=== PATIENT | female | born 1930 | race Caucasian/White ===

== ENCOUNTER 2016-07-10 05:12 | Emergency (ER) | payer OTHER ==
[~2016-07-10] VITALS: Ht 157.5 cm; Wt 52.2 kg
[~2016-07-10 05:12] MED LIST: ASPIRIN81 M4 PO; ATIVAN0.5 M1 PO; ATORVASTATIN CA10 M1 PO; COLCRYS0.6 M1 PO; DOXYCYCLINE HY100 M2 PO; FUROSEMIDE20 M1 PO; IBUPROFEN400 M1 PO; IBUPROFEN600 M1 PO; METOPROLOL TAR100 M1 PO; OMEPRAZOLE20 M2 PO; PREDNISONE20 M1 PO; TOPROL XL50 M1 PO; TRANDOLAPRIL4 M1 PO
--- NOTE | 2016-07-10 05:29 | ED NECK/BACK PAIN COMPLAINT ---
History of Present Illness General Chief Complaint: Upper Extremity Problem Stated Complaint: "PER PT PAIN IN MY BACK Source: patient Exam Limitations: no limitations Vital Signs & Intake/Output Vital Signs & Intake/Output Vital Signs Date Time Temp Pulse Resp B/P Pulse O2 O2 Flow FiO2 Ox Delivery Rate 07/10 0539 99.5 97 18 140/72 95 Room Air Allergies Coded Allergies: No Known Allergies (04/03/16) Reconcile Medications Aspirin (Aspirin*) 81 MG TAB.CHEW 1 TAB PO DAILY HEART HEALTH (Reported) Atorvastatin Calcium 10 MG TABLET 1 TAB PO HIGH CHOLESTROL (Reported) Colchicine (Colcrys) 0.6 MG TABLET 1 TAB PO BID PERICARDITIS Furosemide 20 MG TABLET 20 MG PO DAILY heart Lorazepam (Ativan) 0.5 MG TABLET 1 TAB PO DAILY NEEDED PRN anxiety Metoprolol Tartrate 100 MG TABLET 1 TAB PO DAILY HEART/BP (Reported) Omeprazole 20 MG CAPSULE.DR 40 MG PO DAILY AC GI PPX . Prednisone 20 MG TABLET 1 TAB PO BID pericarditis Trandolapril 4 MG TABLET 1 TAB PO DAILY HIGH BLOOD PRESSURE (Reported) Triage Nurses Notes Reviewed? 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 SISTER (DM). Review of Systems Review of Systems Constitutional: Reports: no symptoms. Eyes: Reports: no symptoms. Ears, Nose, Throat, Mouth: Reports: no symptoms. Respiratory: Reports: no symptoms. Cardiovascular: Reports: no symptoms. Gastrointestinal/Abdominal: Reports: no symptoms. Musculoskeletal: Reports: no symptoms. Skin: Reports: no symptoms. Neurological/Psychological: Reports: no symptoms. All Other Systems: Reviewed and Negative Physical Exam Physical Exam General Appearance: well developed/nourished, mild distress Head: atraumatic Eyes: Bilateral: PERRL, EOMI. Ears, Nose, Throat, Mouth: hearing grossly normal Respiratory: normal breath sounds Cardiovascular: regular rate/rhythm Gastrointestinal: soft, non-tender Back: normal inspection Extremities: normal range of motion Neurologic/Psych: awake, alert, oriented x 3, normal mood/affect Skin: intact, normal color, warm/dry Progress Plan of Care: Orders Procedure Date/time Status B-TYPE NATRIURETIC PEP (BNP) 07/10 0550 Active XRY-PORTABLE CHEST XRAY 07/10 0549 Active TROPONIN LEVEL 07/10 0549 Active PARTIAL THROMBOPLASTIN TIME 07/10 0549 Active PROTHROMBIN TIME 07/10 0549 Active WESTERGREN SED RATE 07/10 0549 Active D-DIMER 07/10 0549 Active COMPREHENSIVE METABOLIC PANEL 07/10 0549 Active CBC WITHOUT DIFFERENTIAL 07/10 0449 Active ECHOCARDIOGRAM 07/10 0549 Active Departure Departure Disposition: HOME OR SELF CARE Condition: Stable Clinical Impression Primary Impression: Back pain Referrals: WILLARD GOODWIN MD (PCP/Family) Departure Forms: Customer Survey General Discharge Information
--- NOTE | 2016-07-10 05:55 | ED CARDIAC/CP/PALPITATIONS ---
See Addendum History of Present Illness General Chief Complaint: Upper Extremity Problem Stated Complaint: "PER PT PAIN IN MY BACK Source: patient Exam Limitations: no limitations Vital Signs & Intake/Output Vital Signs & Intake/Output Vital Signs Date Time Temp Pulse Resp B/P Pulse O2 O2 Flow FiO2 Ox Delivery Rate 07/10 0539 99.5 97 18 140/72 95 Room Air Allergies Coded Allergies: No Known Allergies (04/03/16) Reconcile Medications Aspirin (Aspirin*) 81 MG TAB.CHEW 1 TAB PO DAILY HEART HEALTH (Reported) Atorvastatin Calcium 10 MG TABLET 1 TAB PO HIGH CHOLESTROL (Reported) Colchicine (Colcrys) 0.6 MG TABLET 1 TAB PO BID PERICARDITIS Furosemide 20 MG TABLET 20 MG PO DAILY heart Lorazepam (Ativan) 0.5 MG TABLET 1 TAB PO DAILY NEEDED PRN anxiety Metoprolol Tartrate 100 MG TABLET 1 TAB PO DAILY HEART/BP (Reported) Omeprazole 20 MG CAPSULE.DR 40 MG PO DAILY AC GI PPX . Prednisone 20 MG TABLET 1 TAB PO BID pericarditis Trandolapril 4 MG TABLET 1 TAB PO DAILY HIGH BLOOD PRESSURE (Reported) Triage Note: PT TO TRIAGE C/O BACK/SHOULDER PAIN. PT STATES SHE HAD A PACEMAKER PLACED, SHE RECENTLY WAS CHANGED FROM 10MG PREDNISONE TO 5MG FOR INFLAMMATION OF THE HEART. PT STATES SHE IS WORRIED THAT THE PAIN THAT STARTED LAST NIGHT COULD BE RELATED TO THE HEART INFLAMMATION. Triage Nurses Notes Reviewed? yes Onset: Gradual Duration: hour(s): Timing: recent history Quality/Severity: mild, moderate Location: RIGHT SHOULDER Radiation: no radiation Activities at Onset: none Prior Chest Pain/Card Workup: LYME CARDITIS W/ EFFUSION Modifying Factors: Improves With: rest. 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 She states that for the past 1-2 days she's had intermittent right shoulder pain. She states, "I couldn't sleep at all tonight." She notes that the pain is not reproducible, or affected by movement. It is not associated with dizziness, lightheadedness, chest pressure, or palpitations. She has no problems breathing. She states, "the last time I had this pain I had a real problem with my heart." She notes that she is due for an ultrasound of her heart due to a prior moderate pericardial effusion. Upon arrival to the emergency department, she has no shoulder pain chest pain or shortness of breath. She is otherwise well. (GILBERTO IRBY,GENOVEVA Berkowitz) Past History Travel History Traveled to [place] past 21 day No Medical History Any Pertinent Medical History? 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 SISTER (DM). Hx Contributory? No (GENOVEVA FIGUEROA MD) Review of Systems Review of Systems Constitutional: Reports: no symptoms. EENTM: Reports: no symptoms. Respiratory: Reports: no symptoms. Cardiovascular: Reports: no symptoms. GI: Reports: no symptoms. Genitourinary: Reports: no symptoms. Musculoskeletal: Reports: no symptoms. Skin: Reports: no symptoms. Neurological/Psychological: Reports: no symptoms. Hematologic/Endocrine: Reports: no symptoms. Immunologic/Allergic: Reports: no symptoms. All Other Systems: Reviewed and Negative (GENOVEVA FIGUEROA MD) Physical Exam Physical Exam General Appearance: well developed/nourished, no apparent distress Head: atraumatic, normal appearance Eyes: Bilateral: normal appearance. Ears, Nose, Throat: normal pharynx, normal ENT inspection, hearing grossly normal Neck: normal inspection, supple, full range of motion Respiratory: normal breath sounds, chest non-tender, no respiratory distress, quiet respiration, lungs clear Cardiovascular: regular rate/rhythm Gastrointestinal: normal bowel sounds, soft, non-tender, no organomegaly Back: normal inspection, normal range of motion Extremities: normal inspection, normal capillary refill, normal range of motion, no edema Neurologic/Psych: no motor/sensory deficits, awake, alert, oriented x 3 Skin: intact, normal color, warm/dry Core Measures ACS in differential dx? No Severe Sepsis Present: No Septic Shock Present: No (GILBERTO IRBY,GENOVEVA Berkowitz) Progress Differential Diagnosis: AMI, pericarditis, PERICARDIAL EFFUSION VERSUS MUSCULOSKELETAL PAIN VERSUS OTHER Plan of Care: Orders Procedure Date/time Status Heart Healthy Diet 07/10 L Active TROPONIN LEVEL 07/10 899 Active EKG 07/10 899 Active EKG 07/10 628 Active Add-on Test (ER Only) 07/10 626 Active B-TYPE NATRIURETIC PEP (BNP) 07/10 599 Complete TROPONIN LEVEL 07/10 548 Complete PARTIAL THROMBOPLASTIN TIME 07/10 548 Complete PROTHROMBIN TIME 07/10 548 Complete WESTERGREN SED RATE 07/10 548 Complete D-DIMER 07/10 548 Complete COMPREHENSIVE METABOLIC PANEL 07/10 548 Complete CBC WITHOUT DIFFERENTIAL 07/10 548 Complete ECHOCARDIOGRAM 07/10 548 Active Laboratory Tests 07/10/16 0600: Anion Gap 8, Estimated GFR 59 L, BUN/Creatinine Ratio 24.4, Glucose 105 H, Calcium 9.6, Total Bilirubin 1.2, AST 19, ALT 31, Alkaline Phosphatase 57, Troponin I 0.02, Omu-Z-Jcyoqdkddsl Pept 1140 H, Total Protein 6.7, Albumin 3.9, Globulin 2.8, Albumin/Globulin Ratio 1.4, PT 10.5, INR 1.00, APTT 28, D-Dimer 917 H, CBC w Diff NO MAN DIFF REQ, RBC 4.32, MCV 87.6, MCH 28.9, RDW 17.0 H, MPV 7.9, Gran % 76.5 H, Lymphocytes % 17.1 L, Monocytes % 5.5, Eosinophils % 0.8, Basophils % 0.1, Absolute Granulocytes 9.5 H, Absolute Lymphocytes 2.1, Absolute Monocytes 0.7 H, Absolute Eosinophils 0.1, Absolute Basophils 0, PUBS MCHC 33.0, ESR Westergren 55 H 07/10/16 0550: Ljn-D-Ikarurfszpe Pept Cancelled Diagnostic Imaging: Viewed by Me: Radiology Read. Discussed w/RAD: Radiology Read. CXR Impression: no acute abnormality, no infiltrates, normal size heart, normal mediastinum Initial ED EKG: PACED, NO CHANGE FROM PRIOR Hand-Off Endorsed To: DEAN DO,CLAUDIA L. Endorsed Time: 0700 Pending: consult, labs, ultrasound Comments: PATIENT: JAQUI CR PRESENT AGE: 86 PATIENT ACCOUNT NO: [id number] : 29 LOCATION: [facility] ORDERING PHYSICIAN: GENOVEVA FIGUEROA MD SERVICE DATE: 07/10/16 EXAM TYPE: RAD - XRY-PORTABLE CHEST XRAY EXAMINATION: XR PORTABLE CHEST CLINICAL INFORMATION: Chest pain. COMPARISON: 04/21/2016 TECHNIQUE: Portable AP view of the chest was obtained. FINDINGS: There is a right chest wall dual-lead pacer which is unchanged. The lungs are well expanded. Mild elevation of the right hemidiaphragm is unchanged. No consolidation, edema, or effusion. No pneumothorax. The cardiomediastinal silhouette is unchanged, with a calcified aorta. No acute osseous abnormality. IMPRESSION: No acute pulmonary findings. DICTATED BY: ELMER FIGUEROA MD DATE/TIME DICTATED:07/10/16617 PRIMARY HEALTH ORGANISATION MANAGER:TIM DATE/TIME TRANSCRIBED:07/10/16617 CONFIDENTIAL, DO NOT COPY WITHOUT APPROPRIATE AUTHORIZATION. <Electronically signed in Other Vendor System> SIGNED BY: ELMER FIGUEROA MD 07/10 0624 (GILBERTO IRBY,GENOVEVA Berkowitz) Departure Departure Disposition: HOME OR SELF CARE Condition: Stable Clinical Impression Primary Impression: Right shoulder pain Referrals: WILLARD GOODWIN MD (PCP/Family) Departure Forms: Customer Survey General Discharge Information Comments 07/10/16, 6:55AM... Pt pain free in ED, awaiting labs... pt signed out to dr. cavazos. (GILBERTO IRBY,GENOVEVA Berkowitz) Departure Comments 07/10/16 8:35 AM The patient was signed out to me by Dr. Figueroa at 7 AM. She is 86-year-old female with a history of heart block. She status post pacemaker insertion. She also has a history of Lyme disease. She says last night she had an episode of right arm pain and back pain that was consistent with the same feelings that she had when she had her prior bradycardic episode Now in the emergency department she is asymptomatic no chest pain or shortness of breath Labs are unremarkable although she had an elevated d-dimer CTA was negative for pulmonary embolism Troponin is negative EKG reveals ventricular paced beats She is pending repeat EKG and troponin. Dr. Sykes was paged, as he is her inside sales specialist. (DEAN BILL,CLAUDIA Chadwick) Critical Care Note Critical Care Note Critical Care Time: non-applicable (GILBERTO IRBY,GENOVEVA Berkowitz)
[2016-07-10 06:16] LABS: ABSOLUTE BASOPHIL COUNT 0 /CUMM (0.0-0.2); ABSOLUTE EOSINOPHIL COUNT 0.1 /CUMM (0.0-0.7); ABSOLUTE GRANULOCYTE CT 9.5 /CUMM (1.4-6.5); ABSOLUTE LYMPH COUNT 2.1 /CUMM (1.2-3.4); ABSOLUTE MONOCYTE COUNT 0.7 /CUMM (0.10-0.60); BASOPHIL % 0.1 % (0.0-2.0); EOSINOPHIL % 0.8 % (0-5); GRANULOCYTE % 76.5 % (42.2-75.2); HEMATOCRIT 37.8 % (37-47); MEAN CORPUSCULAR HGB 28.9 PG (27.0-31.0); MEAN CORPUSCULAR VOLUME 87.6 FL (81.0-99.0); MEAN PLATELET VOLUME 7.9 FL (7.4-10.4); PLATELET COUNT 193 /CUMM (130-400); RED BLOOD CELL CT 4.32 /CUMM (4.20-5.40); WHITE BLOOD CELL COUNT 12.4 /CUMM (4.8-10.8)
--- NOTE | 2016-07-10 06:24 | RADIOLOGY REPORT ---
EXAMINATION: XR PORTABLE CHEST CLINICAL INFORMATION: Chest pain. COMPARISON: 04/21/2016 TECHNIQUE: Portable AP view of the chest was obtained. FINDINGS: There is a right chest wall dual-lead pacer which is unchanged. The lungs are well expanded. Mild elevation of the right hemidiaphragm is unchanged. No consolidation, edema, or effusion. No pneumothorax. The cardiomediastinal silhouette is unchanged, with a calcified aorta. No acute osseous abnormality. IMPRESSION: No acute pulmonary findings.
[2016-07-10 06:41] LABS: PT 10.5 SEC (9.4-12.5); PTT 28 SEC (25-37)
--- NOTE | 2016-07-10 07:44 | CT SCAN REPORT ---
EXAMINATION: CTA CHEST PE STUDY CLINICAL INFORMATION: right shoulder pain, +dimer COMPARISON: 04/08/2016 CT TECHNIQUE: Prior to contrast administration, noncontrast localization images were obtained. After the administration of 95 ml of Optiray 320 IV contrast, contiguous thin slice helical images were obtained through the thorax. Reformatted MIP images in the coronal and sagittal planes were obtained at the acquisition workstation. DLP: 317 mGy-cm. FINDINGS: The bolus timing on this study was acceptable for visualization of the pulmonary arterial tree. There are no intraluminal pulmonary arterial filling defects present to suggest pulmonary embolism. Minimal bibasilar dependent atelectasis. Focal impacted branching bronchus again seen in the lateral aspect of the right lower lobe costophrenic sulcus, not significantly changed from the prior study. No new pulmonary nodules or masses are appreciated. No significant hilar or mediastinal adenopathy. There is no evidence of pleural effusion or pneumothorax. Atherosclerotic disease seen within the aorta, similar to the prior study small pericardial effusion is again noted, similar to the prior study Limited evaluation of the upper abdominal viscera is unremarkable. IMPRESSION: No evidence for central pulmonary emboli. No acute airspace disease with a focal impacted bronchi seen in the lateral aspect of the right lower lobe again noted. VTE: Negative
[2016-07-10 11:23] VITALS: BP 141/63
--- NOTE | 2016-07-10 17:16 | Cons- Cardiology ---
General Information and HPI Consulting Request Date of Consult: 07/10/16 Requested By: Adrianna Hopper DO Reason for Consult: Recurrent shoulder pain in a patient with previous heart block, pacemaker and pericarditis. Source of Information: patient, old records Exam Limitations: no limitations History of Present Illness: The patient is an 86-year-old female well known to me. The patient presented on 04/03/2016 with a syncopal episode. She had complete heart block and a pacemaker was implanted the next day. 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 Recently she has been on a tapering dose of steroids because she failed nonsteroidal anti-inflammatory drugs. The patient has previously had shoulder and back pain as manifestation of her pericarditis. I saw this patient in the office in less than one week ago, at which time she was fine. However last night she had right shoulder pain all night long and came to the emergency room. Workup in the emergency room has been negative with regards to ischemia. Her enzymes are negative, her EKGs only show atrial sensing and ventricular pacing and her CTA of the chest was negative for pulmonary emboli. It did show a small pericardial effusion. Currently the patient is feeling well. She has no further chest pain, no shortness of breath, no palpitations, no dizziness, no syncope. Allergies/Medications Allergies: Coded Allergies: No Known Allergies (04/03/16) Home Med List: Aspirin (Aspirin*) 81 MG TAB.CHEW 1 TAB PO DAILY HEART HEALTH (Reported) Atorvastatin Calcium 10 MG TABLET 1 TAB PO HIGH CHOLESTROL (Reported) Colchicine (Colcrys) 0.6 MG TABLET 1 TAB PO BID PERICARDITIS Furosemide 20 MG TABLET 20 MG PO DAILY heart Lorazepam (Ativan) 0.5 MG TABLET 1 TAB PO DAILY NEEDED PRN anxiety Metoprolol Tartrate 100 MG TABLET 1 TAB PO DAILY HEART/BP (Reported) Omeprazole 20 MG CAPSULE.DR 40 MG PO DAILY AC GI PPX . 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 SISTER (DM). Psychosocial History Who Do You Live With? self Services at Home: None Primary Language: Spanish Power of Dean For Student Affairs/HCP? yes Name of POA/HCP: her neice Functional Ability ADLs Independent: dressing, eating, toileting, bathing. Ambulation: independent IADLs Independent: shopping, housework, finances, food prep, telephone, transportation , medication admin. Exam & Diagnostic Data Vital Signs and I&O Vital Signs Date Time Temp Pulse Resp B/P Pulse O2 O2 Flow FiO2 Ox Delivery Rate 07/10 1123 97.1 83 18 141/63 96 07/10 0926 98.6 88 18 134/66 98 Room Air 07/10 0539 99.5 97 18 140/72 95 Room Air Intake & Output 07/10 1600 07/10 0800 07/10 0000 07/09 1600 07/09 0800 07/09 0000 Intake Total Output Total Balance Patient 115 lb Weight Physical Exam: On physical exam she is comfortable and in no distress. Her vital signs are normal. HEENT exam is normal The chest is clear The heart reveals a soft systolic ejection murmur at the base. The pacemaker site is well-healed Abdomen is benign Extremities reveal good pulses and no edema Neurologic examination is intact. She is mentally very sharp. Labs/Tony Results: Laboratory Tests 07/10 07/10 07/10 0903 0600 0550 Chemistry Sodium (137 - 145 mmol/L) 141 Potassium (3.5 - 5.1 mmol/L) 3.8 Chloride (98 - 107 mmol/L) 102 Carbon Dioxide (22 - 30 mmol/L) 31 H Anion Gap (5 - 16) 8 BUN (7 - 17 mg/dL) 22 H Creatinine (0.5 - 1.0 mg/dL) 0.9 Estimated GFR (>60 ml/min) 59 L BUN/Creatinine Ratio (7 - 25 %) 24.4 Glucose (65 - 99 mg/dL) 105 H Calcium (8.4 - 10.2 mg/dL) 9.6 Total Bilirubin (0.2 - 1.3 mg/dL) 1.2 AST (14 - 36 U/L) 19 ALT (9 - 52 U/L) 31 Alkaline Phosphatase (<127 U/L) 57 Troponin I (< 0.11 ng/ml) 0.03 0.02 [id number]-[id number] Pept (<125 pg/mL) 1140 H Cancelled Total Protein (6.3 - 8.2 g/dL) 6.7 Albumin (3.5 - 5.0 g/dL) 3.9 Globulin (1.9 - 4.2 gm/dL) 2.8 Albumin/Globulin Ratio (1.1 - 2.2 %) 1.4 Coagulation PT (9.4 - 12.5 SEC) 10.5 INR (0.90 - 1.19) 1.00 APTT (25 - 37 SEC) 28 D-Dimer (70 - 232 ng/ml) 917 H Hematology CBC w Diff NO MAN DIFF REQ WBC (4.8 - 10.8 /CUMM) 12.4 H RBC (4.20 - 5.40 /CUMM) 4.32 Hgb (12.0 - 16.0 G/DL) 12.5 Hct (37 - 47 %) 37.8 MCV (81.0 - 99.0 FL) 87.6 MCH (27.0 - 31.0 PG) 28.9 RDW (11.5 - 14.5 %) 17.0 H Plt Count (130 - 400 /CUMM) 193 MPV (7.4 - 10.4 FL) 7.9 Gran % (42.2 - 75.2 %) 76.5 H Lymphocytes % (20.5 - 51.1 %) 17.1 L Monocytes % (1.7 - 9.3 %) 5.5 Eosinophils % (0 - 5 %) 0.8 Basophils % (0.0 - 2.0 %) 0.1 Absolute Granulocytes (1.4 - 6.5 /CUMM) 9.5 H Absolute Lymphocytes (1.2 - 3.4 /CUMM) 2.1 Absolute Monocytes (0.10 - 0.60 /CUMM) 0.7 H Absolute Eosinophils (0.0 - 0.7 /CUMM) 0.1 Absolute Basophils (0.0 - 0.2 /CUMM) 0 PUBS MCHC (33.0 - 37.0 G/DL) 33.0 ESR Westergren (0 - 20 MM) 55 H Diagnostic Data EKG Results EKG shows atrial sensing and ventricular pacing CXR Results Chest x-ray shows mild cardiomegaly, no pulmonary findings, pacemaker in place. Other Results IMPRESSION: No evidence for central pulmonary emboli. No acute airspace disease with a focal impacted bronchi seen in the lateral aspect of the right lower lobe again noted. VTE: Negative DICTATED BY: RIANA WARNER MD DATE/TIME DICTATED:07/10/16731 CYCLE TOURING GUIDE:TIM DATE/TIME TRANSCRIBED:07/10/16731 Assessment/Plan Assessment/Plan This patient presents with right shoulder pain. Cardiac workup and workup for pulmonary embolism have been negative. She has known small pericardial effusion which does not appear any different than previously. She is actually scheduled for an echocardiogram in the next couple of days to follow-up on this. I think her discomfort today is non cardiac in nature, probably more musculoskeletal. She can be discharged from the emergency department and I will follow her up after her echocardiogram. Copies To: WILLARD GOODWIN MD Consult Acknowledgment - Thank you for your consult request.
== END 2016-07-10 12:23 ==
LOC: ERH 05:12
PROVIDERS: Pediatrics
DX: M25.511 Pain in right shoulder (principal)
CPT/HCPCS: 93005; 93010